=== PATIENT | female | born 2000 | race Two or more races ===

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

== ENCOUNTER 2023-08-20 13:55 | Outpatient (CLI) | payer OTHER | END 2023-08-20 13:56 | disposition home or self-care (01) | LOC: SONOGRAMA 13:55 | PROVIDERS: ATTEND Pathology Anatomic Pathology & Clinical Pathology | DX: D34 Benign neoplasm of thyroid gland (principal); E06.3 Autoimmune thyroiditis ==